=== PATIENT | male | born 1945 | race Caucasian/White ===

== ENCOUNTER 2017-01-22 23:58 | Emergency (ER) | payer OTHER ==
[~2017-01-22] VITALS: Ht 170.2 cm; Wt 90.9 kg
[~2017-01-22 23:58] MED LIST: ALBU8.5H2 IH; ASPI-653 PO; FLUT16SP NS; GOLD1CAP PO; GUAI120013 PO; LORA-610 PO; MECL-125 PO; SENN-82 PO; SYMINH IH; [UNRECOGNIZED DRUG - OTHER] NEB
[2017-01-23 00:01] VITALS: BP 124/67; PULSE 87; O2SAT 90
--- NOTE | 2017-01-23 00:13 | ED.REPORT ---
HPI-General Illness Date of Service Jan 23, 2017 ED Provider: Michael Powell MD A 71 year old male with a history of COPD, daily THC use, and pneumonia presents to the ED complaining of difficulty sleeping. The pt has been experiencing difficulty sleeping for two weeks. He was seen in Urgent Care and prescribed Lorazepam. He took this last night and slept well, but did not have the same reaction tonight. He took his dose of Lorazepam two hours ago and laid down to sleep, but began coughing and felt wide awake. The pt also reports shortness of breath recently, but does not believe that this is related to his difficulty breathing. He admits to mild nausea but denies chest pain or vomiting. Nursing Notes Stated Complaint: TROUBLE BREATHING Chief Complaint: Respiratory Distress Nursing Notes Reviewed: Yes Allergies: Coded Allergies: No Known Drug Allergies (Verified Allergy, Unknown, 03/28/14) Scheduled ([neti pot]) 1 NEB BID Albuterol HFA (Proair HFA) 8.5 Gm Hfa.aer.ad 2 PUFFS IH BID Aspirin-Expunged Drug, Do Not Renew! (Lo-Dose Aspirin-Expunged Drug, Do Not Renew!) 81 Mg Tablet.dr 81 MG PO DAILY Budesonide/Formoterol 160-4.5 mcg Inh (Symbicort 160-4.5 mcg Inh) 1 Puff Inha 1 PUFF IH BID Fluticasone Propionate (Fluticasone Propionate Nasal) 16 Gm [place].susp 2 SPRAY NS BID Guaifenesin (Mucinex) 1,200 Mg Tbmp.12hr 1,200 MG PO DAILY Loratadine (Loratadine) 10 Mg Tab.rapdis 10 MG PO DAILY Sennosides/Docusate Sod-Expunged Drug, Do Not (Stool Softener-Expunged Drug, Do Not Renew!) 1 Each Tablet 1 EACH PO PRN Scheduled PRN [place] Seal/Echinacea Purpurea (Echinacea & Goldenseal Cap) 1 Each Capsule 1 EACH PO PRN PRN PRN For Congestion Hydroxyzine HCl (HydrOXYzine Hcl) 50 Mg Tablet 50 MG PO HS PRN PRN For Sleep Meclizine HCl (Meclizine HCl) 25 Mg Tab.chew 25 MG PO PRN PRN PRN For Congestion Ondansetron ODT (Ondansetron ODT) 8 Mg Tab.rapdis 8 MG PO QID PRN PRN For Nausea General Time Seen by MD: 00:12 Chief Complaint Other (Difficulty sleeping) Hx Obtained From: Patient Arrived By: Walk-in Sudden in Onset?: No Onset Occurred: More than a week ago... Recent Healthcare: No recent hospitalization, Recent doctor visit Similar Sx Previous: No Past Medical History Past Medical History pneumonia heartburn arthritis Past Surgical History vasectomy Smoking History Former Smoker Social History Drug Use: THC Ambulatory Status Independent Review of Systems Full Review of Systems Constitutional: Denies: Fever Respiratory: Reports: Non-productive cough, Shortness of breath Cardiovascular: Denies: Chest pain GI: Reports: Nausea, Denies: Abdominal pain, Vomiting Skin: Denies Rash Complete sys rev & neg: except as marked. Physical Exam Vital Signs Vital Signs Date Time Temp Pulse Resp B/P Pulse Ox O2 Delivery O2 Flow Rate FiO2 01/23/17 01:31 82 24 91 01/23/17 00:42 83 18 91 Room Air 01/23/17 00:01 36.1 87 124/67 90 Room Air Initial VS: Reviewed General/Constitutional: Awake, Alert Appearance / Presentation: Positive: Obese Head / Eyes: Atraumatic, Normocephalic, PERRL, EOMI ENT: Atraumatic, Airway patent, Mucous membranes moist Neck: Atraumatic, Supple, Full range of motion, No JVD Respiratory / Chest: Atraumatic, Breath sounds = bilat, No respiratory distress distinctly wheezy prolonged expiratory phase Cardiovascular: Heart rate NL, Regular rhythm, Heart sounds NL Abdomen: Atraumatic, Soft, Non-tender Back: Atraumatic, Full range of motion Upper Extremities Upper Extremity / MS: Atraumatic, Full range of motion Lower Extremity / Pelvis / MS: Atraumatic, Full range of motion Skin: Atraumatic, Color NL, No rash, Warm, Dry Neurologic: Oriented X3, Speech NL, No motor deficits, No sensory deficits Psychiatric: Affect NL, Mood NL Interpretation & Diagnostics ECG Interpretation ECG Interpretation: normal sinus rhythm with a rate of 83 inferior infarct, old probable anterolateral infarct, old Time: 00:44 Interpreted by: ED physician Re-Eval/Medical Decision Med Decision/Clinical Course 71-year-old presents primarily for insomnia. He has chronic obstructive lung disease and chronic wheezing, and is not sure if the wheezing is keeping him awake, or his anxieties about multiple situational issues. He took prescribed lorazepam 0.5 mg and did not feel sleepy. He was improved after nebulizers here. He was given hydroxyzine for home use to minimize his use of benzodiazepines. Discharged in stable condition. Source of Hx: Old records Time of Eval: 00:58 Patient Status: Condition improved Re-Evaluation/Progress Note: Pt rechecked, who is feeling better. The plan for discharge is discussed. The pt understands and agrees with the plan. All questions are addressed at this time. Counseled Regarding: Diagnosis, Need for follow-up, When/why to return to ED Discharge & Departure Primary Impression: COPD (chronic obstructive pulmonary disease) Additional Impression: Insomnia Disposition: Home Discharge Condition All VS Reviewed: Yes Condition: Stable Patient Instructions: Chronic Obstructive Pulmonary Disease (ED), Insomnia in Older People (GEN) Additional Instructions: Vistaril at night only if needed for sleep. Continue your current breathing medications. Follow up with your doctor in the office. Return if any immediate issues over the weekend. Referrals: Ken Calvin MD (PCP) Scribe Attestation Portions of this note were transcribed by Tamara Tafoya. I, Dr. Powell personally performed the history, physical exam and medical decision-making; I reviewed and confirmed the accuracy of the information in the transcribed note. Signed by: Ashwin Neal, 01/23/2017 and 0101. copies to: Ken Calvin MD, Christopher W MD Jan 23, 2017 00:13 TAMARA TAFOYA Jan 23, 2017 00:30
[2017-01-23] MEDS ORDERED: _Ondansetron ODT 4 mg Tablet PO PRN (00:35)
[2017-01-23] MEDS ORDERED: Albuterol 2.5 mg/3 mL Inhalation Solution NEB ONE (00:35)
[2017-01-23] MEDS ORDERED: Albuterol-Ipratropium 3 mL Inhalation Solution NEB ONE (00:35)
[2017-01-23 00:42] VITALS: PULSE 83; RESP 18; O2SAT 91
[2017-01-23] MEDS ORDERED: HYDR50TA76 PO (00:54)
[2017-01-23] MEDS ORDERED: ONDA8TAB10 PO (00:54)
[2017-01-23 01:31] VITALS: PULSE 82; RESP 24; O2SAT 91
== END 2017-01-23 01:05 | disposition home or self-care (01) ==
LOC: SED 23:58
DX: J44.9 Chronic obstructive pulmonary disease, unspecified (principal); G47.00 Insomnia, unspecified; R11.0 Nausea; Z87.01 Personal history of pneumonia (recurrent); Z87.891 Personal history of nicotine dependence
CPT/HCPCS: 93005; 94640; 99284; J7613; J7620; Q0177